=== PATIENT | male | born 1980 | race Caucasian/White ===

== ENCOUNTER 2020-02-21 09:36 | Emergency (ER) | payer SELFPAY ==
[~2020-02-21] VITALS: Ht 177.8 cm; Wt 90.7 kg
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
--- NOTE | 2020-02-21 10:56 | NUR ---
us tech in room with client.
--- NOTE | 2020-02-21 10:57 | NUR ---
Rui camarena in [facility] - 02/21/20 at 1057 by KVNG US at bedside
[2020-02-21] MEDS ORDERED: KETOROLAC TROMETHAMINE 60 MG/2 ML VIAL IM NR (11:30)
--- NOTE | 2020-02-21 12:02 | Diagnostic Imaging Report ---
EXAM: Scrotal Ultrasound INDICATION: ^left scrotal pain ^[id number] ^1052 COMPARISON: None TECHNIQUE: Transverse and longitudinal images were obtained of the scrotum with grayscale imaging, color Doppler and spectral waveform analysis. FINDINGS: Right testis: Size: 4.2 x 2.1 x 3.0 cm, normal in size. Echogenicity: Heterogeneous appearance without discrete masses. Mass/Cysts: None Left testis: Size: 4.1 x 2.1 x 3.0 cm, normal in size. Echogenicity: Normal. Mild edema superior to the left testicle. Mass/Cysts: None Epididymis: Appearance: Normal in size without increased vascularity. Mass/Cysts: None Extratesticular: Masses: Loculated mass within the scrotum remains indeterminate but may represent a hernia. Few mildly enlarged left inguinal lymph nodes measuring up to 4.0 cm. Fluid collections: None Doppler: Normal arterial flow to both testes and symmetrical flow on color Doppler evaluation is seen. No evidence of testicular torsion. IMPRESSION: 1. No evidence of testicular torsion. 2. Heterogeneous right testicle may be inflammatory or infectious. 3. Possible scrotal hernia and indeterminate mildly enlarged left inguinal lymph nodes. Recommend further evaluation with CT abdomen and pelvis with IV contrast extending into the scrotal region. Signed by: Dr. Radha Lechuga M.D. on 02/21/2020 11:59 AM
[2020-02-21 12:59] LABS: BASOPHILS % 0.3 % (0.0-1.0); EOSINOPHILS # (AUTO) 0.2 (0.0-0.4); EOSINOPHILS % 1.2 % (0.0-6.0); HEMATOCRIT 40.9 % (38.2-49.6); HEMOGLOBIN 13.6 g/dL (14.0-18.0); LYMPHOCYTES % 12.9 % (18.0-39.1); MEAN CORPUSCULAR HEMOGLOBIN 30.3 pg (28-32); MEAN CORPUSCULAR HGB CONC 33.3 g/dL (31-35); MEAN CORPUSCULAR VOLUME 91.1 fL (81-99); MONOCYTES # (AUTO) 1.3 (0.2-0.8); MONOCYTES % 8.4 % (4.4-11.3); NEUTROPHILS # (AUTO) 11.8 (2.1-6.9); NEUTROPHILS % 76.7 % (38.7-80.0); PLATELET COUNT 211 x10e3/uL (140-360); RED BLOOD COUNT 4.49 x10e6/uL (4.3-5.7); RED CELL DISTRIBUTION WIDTH 12.4 % (11.7-14.4)
[2020-02-21] MEDS ORDERED: DIATRIZOATE MEGL/DIATRIZOA SOD 30 ML BTL PO ONE (12:59)
[2020-02-21 13:20] LABS: ALANINE AMINOTRANSFERASE 9 IU/L (0-55); ALBUMIN 3.6 g/dL (3.5-5.0); ALBUMIN/GLOBULIN RATIO 1.3 (0.8-2.0); ALKALINE PHOSPHATASE 76 IU/L (40-150); ANION GAP 13.5 mmol/L (8-16); BLOOD UREA NITROGEN 9 mg/dL (7-26); BUN/CREATININE RATIO 10 (6-25); CALCIUM 8.6 mg/dL (8.4-10.2); CARBON DIOXIDE 25 mmol/L (22-29); CHLORIDE 103 mmol/L (98-107); CREATININE, SERUM 0.86 mg/dL (0.72-1.25); EST GLOMERULAR FILTRATION RATE > 60 ML/MIN (60-); GLUCOSE 100 mg/dL (74-118); POTASSIUM 3.5 mmol/L (3.5-5.1); SODIUM 138 mmol/L (136-145)
[2020-02-21] MEDS ORDERED: IOPAMIDOL 370 MG/ML 200 ML INFUS..BTL INJ ONE (14:30)
[2020-02-21] MEDS ORDERED: SODIUM CHLORIDE 0.9% 50ML 50 ML ONE (14:30)
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
[2020-02-21 16:15] VITALS: BP 135/81
== END 2020-02-21 16:20 | disposition home or self-care (01) ==
LOC: ER 09:38
DX: N50.812 Left testicular pain (principal); N44.8 Other noninflammatory disorders of the testis
CPT/HCPCS: 36415; 74177; 76870; 80053; 85025; 93976; 99284; J1885; Q9967